=== PATIENT | female | born 1950 | race Caucasian/White ===

== ENCOUNTER 2025-01-27 11:30 | Day surgery (SDC) | payer MEDICARE, MEDICAID ==
[2025-01-27] VITALS (10 sets, daily range): BP systolic 105–135; BP diastolic 48–80; PULSE 67–84; RESP 12–17; TEMP 98.4; O2SAT 91–98
[~2025-01-27] VITALS: Ht 162.6 cm; Wt 53.4 kg
[~2025-01-27 11:30] MED LIST: ARMO150T6 PO; ASPI-1265 PO; ATOR40TA72 PO; BUPR-726 PO; DOCU-392 PO; DULO60CA65 PO; MONT-40 PO; PANT40TA54 PO; PRAM0.129 PO; TRAZ-256 PO
--- NOTE | 2025-01-27 12:00 | ELECTROCARDIOGRAPH REPORT ---
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 MIKE Titus Measurements Intervals [place] Rate: 68 P: 63 MS: 165 QRS: 25 QRSD: 101 T: 94 QT: 408 QTc: 434 Interpretive Statements Sinus rhythm LVH with secondary repolarization abnormality Electronically Signed On 01-27-2025 13:23:[address] MIKE Titus Please click the below link to view image of tracing.
[2025-01-27] MEDS ORDERED: midazolam 1 mg/ML 2ml injection ONE (13:54)
[2025-01-27] MEDS ORDERED: LIDOcaine 1% (10mg/ml) 2ml vial ONE (13:54)
[2025-01-27] MEDS ORDERED: fentaNYL/PF 50MCG/1 ML 2ML syringe ONE (13:54)
[2025-01-27] MEDS ORDERED: verapamil 2.5 mg/ml inj IV ONE (13:54)
[2025-01-27] MEDS ORDERED: nitroGLYCERIN 500mcg/5mL D5W 5 ML IV ONE (13:55)
[2025-01-27] MEDS ORDERED: heparin 1,000unit/ml 10ml vial 10 ML ONE (13:55)
[2025-01-27 14:29] LABS: MEAN PLATELET VOLUME 7.7 FL (7.4-10.4); RED CELL DISTRIBUTION WIDTH 22.3 % (11.5-14.5)
[2025-01-27 14:31] LABS: CREATININE 0.62 MG/DL (0.40-0.90); TOTAL CARBON DIOXIDE 27.4 MMOL/L (24-32); eCRCL 65 ML/MIN; eGFR > 90 ML/MIN
[2025-01-27 14:36] LABS: APTT 26 SECONDS (22-32); INR 1.0 INR
[2025-01-27 15:13] LABS: PLATELET ESTIMATE NORMAL
[2025-01-27] MEDS ORDERED: ondansetron/PF 4mg/2ml inj IV PRN (15:15)
[2025-01-27] MEDS ORDERED: OXAZEpam 15mg capsule PO PRN (15:15)
[2025-01-28 06:20] LABS: ISTAT HGB MIX 6.1 g/dl (12.0-16.0); ISTAT HGB MIX 6.8 g/dl (12.0-16.0); ISTAT Hct MIX 18 %PCV (35-45); ISTAT Hct MIX 20 %PCV (35-45); ISTAT O2 SATURATION MIX VENOUS 54 % (60-80); ISTAT O2 SATURATION MIX VENOUS 57 % (60-80); ISTAT SOURCE BLNK
--- NOTE | 2025-02-21 10:41 | CARDIOLOGY REPORT ---
DATE OF SERVICE: 01/27/2025 DICTATING PHYSICIAN: Rose Alvarenga MD CARDIAC CATHETERIZATION REPORT DATE OF STUDY: 01/27/2025 PROCEDURES: * Right heart catheterization. * Selective coronary angiography. * Conscious sedation monitoring time for 30 minutes. INDICATION: Aortic stenosis. PHYSICIAN: Talon Alvarenga MD DESCRIPTION OF PROCEDURE: After informed consent was obtained, the patient was brought to the lab where she was prepped and draped in the usual sterile fashion. A 6-Burkinan sheath was inserted into the right radial artery and a 6-Burkinan sheath in the right brachial vein. Using a 5-Burkinan [place] catheter, the catheter was advanced under fluoroscopy guidance and floated into the right-sided chambers and into a wedge position where pulmonary capillary wedge pressure and right-sided pressures were obtained. After removing the [place] catheter, a TIG catheter was used and advanced over 0.035 wire. The left and right coronaries were engaged and selective coronary angiography performed. HEMODYNAMICS: For the patient's hemodynamics, please refer to the event log. 1. Left ventriculography was not performed. 2. Pulmonary capillary wedge pressure was 16/15 with a mean of 13 mmHg. 3. Pulmonary arterial pressure was 32/14 with a mean of 23 mmHg. 4. The patient's right ventricular pressure was 34/5 with a mean of 9 mmHg. 5. Right atrial pressure was 12/8 with a mean of 8 mmHg. 6. AO saturation was 95%. 7. PA saturation was 54%. FINDINGS: 1. The left main coronary artery is a normal caliber vessel with my luminal irregularities. 2. The left anterior descending coronary artery is a medium caliber vessel with a 40-50% mid vessel stenosis. 3. The circumflex coronary artery is a medium caliber vessel that tapers to a small caliber vessel distally. 4. The right coronary artery is a normal caliber dominant vessel with a 60-70% mid vessel stenosis. IMPRESSION: * 40-50% mid LAD stenosis. * 60-70% mid RCA stenosis. * Mean pulmonary capillary wedge pressure was 13 and the patient's mean pulmonary arterial pressure was 23 mmHg. * Left ventriculography was not performed. Rose Alvarenga MD TID: [id number] RECEIPT: [id number] KILLIAN/LOVE
== END 2025-01-27 17:50 | disposition home or self-care (01) ==
LOC: SSTAY O 11:30
PROVIDERS: ATTEND Student in an Organized Health Care Education/Training Program
DX: I35.0 Nonrheumatic aortic (valve) stenosis (principal); I25.10 Atherosclerotic heart disease of native coronary artery without angina pectoris; E78.00 Pure hypercholesterolemia, unspecified; I11.0 Hypertensive heart disease with heart failure; I50.9 Heart failure, unspecified; J44.9 Chronic obstructive pulmonary disease, unspecified; Z79.82 Long term (current) use of aspirin; Z88.2 Allergy status to sulfonamides; Z79.899 Other long term (current) drug therapy; F41.9 Anxiety disorder, unspecified; K21.9 Gastro-esophageal reflux disease without esophagitis
CPT/HCPCS: 36415; 80048; 82803; 85014; 85025; 85610; 85730; 93005; 93456; 99152; 99153; A6258; J1644; J2003; J2250; J3010; J3490; J7030; Q0163; Q9967; 85008; A6402; C1751; C1894

== ENCOUNTER 2025-02-27 12:45 | Outpatient (CLI) | payer MEDICARE, MEDICAID ==
[~2025-02-27 12:45] MED LIST changes: +IODIXANOL 320 MG/ML INFUS..BTL 100ML IV ONE
[2025-02-27 13:13] LABS: MEAN PLATELET VOLUME 7.1 FL (7.4-10.4); RED CELL DISTRIBUTION WIDTH 25.0 % (11.5-14.5)
[2025-02-27 13:25] LABS: APTT 33 SECONDS (22-32); INR 1.0 INR
--- NOTE | 2025-02-27 13:26 | RADIOLOGY REPORT ---
DI CHEST,TWO VIEWS, HISTORY: TAVR COMPARISON: None None TECHNICAL DATA: 2 view of the chest was obtained. FINDINGS: Lines and tubes: None Cardiomediastinal silhouette: normal Pulmonary vasculature: normal Lung expansion: normal Lung airspace: normal Lung interstitium: normal Pleura: normal Pneumothorax: no Bones: Unremarkable Other: Calcified breast implants are noted. IMPRESSION: No acute intrathoracic abnormality.
[2025-02-27 13:39] LABS: CREATININE 0.87 MG/DL (0.40-0.90); PRO BRAIN NATRIURETIC PEPTIDE 595 PG/ML (0-450); TOTAL CARBON DIOXIDE 29.4 MMOL/L (24-32); eGFR 63 ML/MIN
[2025-02-27 13:53] LABS: PLATELET ESTIMATE NORMAL
[2025-02-27 13:54] LABS: ELLIPTOCYTES 1+
== END 2025-02-27 23:59 | disposition home or self-care (01) ==
LOC: RAD 12:45
PROVIDERS: ATTEND Internal Medicine Cardiovascular Disease
DX: I35.0 Nonrheumatic aortic (valve) stenosis (principal); R06.02 Shortness of breath; I65.29 Occlusion and stenosis of unspecified carotid artery; Z98.82 Breast implant status
CPT/HCPCS: 36415; 71046; 71275; 74174; 75572; 80053; 83880; 85008; 85025; 85610; 85730; Q9967

== ENCOUNTER 2025-04-03 08:04 | Inpatient (IN) | payer MEDICARE, MEDICAID ==
[~2025-04-03] VITALS: Ht 172.7 cm; Wt 59.5 kg
[2025-04-03] VITALS (25 sets, daily range): BP systolic 90–143; BP diastolic 48–115; PULSE 58–79; RESP 9–16; TEMP 97–97.4; O2SAT 95–100
[~2025-04-03 08:04] MED LIST changes: +BUSP10TA11 PO; -IODIXANOL 320 MG/ML INFUS..BTL 100ML IV ONE; +LINA145C PO; -MONT-40 PO; +MONT-47 PO; +TOBR5DRO7 LEFTEYE; -TRAZ-256 PO; +TRAZ150T78 PO
[2025-04-03] MEDS: nitroPRUSSIDE (NIPRIDE) (200MCG/ML) 100ML Drip IV SCH (08:50)
[2025-04-03] MEDS ORDERED: labetalol 20mg/4ml (5mg/ml) syringe IV PRN ×2 (09:20→11:35)
[2025-04-03] MEDS ORDERED: HYDROmorphone/PF 0.2 MG/ML SYRINGE IV PRN ×2 (09:20)
[2025-04-03] MEDS ORDERED: hydrALAZINE 20mg/ml inj. IV PRN ×2 (09:20→11:35)
[2025-04-03] MEDS ORDERED: ondansetron/PF 4mg/2ml inj IV PRN ×3 (09:20→11:35)
[2025-04-03] MEDS ORDERED: LIDOcaine 1% (10mg/ml) 2ml vial ONE (09:41)
[2025-04-03] MEDS ORDERED: heparin 1,000 UNITS/NS 500ml 1,500 ML ONE (09:42)
[2025-04-03] MEDS: ringers solution, lacted 1,000 ML IV SCH (09:57)
[2025-04-03] MEDS: vancomycin/NS 1 GM ADD-VANTAGE 250 ML IV ONE (09:57)
[2025-04-03] MEDS ORDERED: docusate sod 100mg capsule PO PRN ×2 (10:35→11:35)
[2025-04-03] MEDS ORDERED: morphine 4 MG/ML inj SYRINge IV PRN (10:45)
[2025-04-03] MEDS ORDERED: potassium Cl 40MEQ/270ML bag 250 ML IV PRN (11:35)
[2025-04-03] MEDS ORDERED: potassium Cl 20 mEq SR tablet PO PRN (11:35)
[2025-04-03] MEDS ORDERED: magnesium sulf-water 4G/100mL 100 ML IV PRN (11:35)
[2025-04-03] MEDS ORDERED: ALPRAZolam 0.25mg tablet PO PRN (11:35)
[2025-04-03] MEDS ORDERED: potassium CL 10mEq/100ml bag 100 ML IV PRN (11:35)
[2025-04-03] MEDS ORDERED: potassium Cl 20mEq/100mL bag 100 ML IV PRN (11:35)
[2025-04-03] MEDS ORDERED: magnesium sulf-water 2g/50mL 50 ML IV PRN (11:35)
[2025-04-03] MEDS ORDERED: pantoprazole 40mg Tablet.DR PO PRN (11:35)
[2025-04-03] MEDS ORDERED: potassium Cl 40MEQ/1/2NS 520ml 520 ML IV PRN (11:35)
--- NOTE | 2025-04-03 11:40 | OPERATIVE REPORT ---
Operative Report Providers to CC CC: KALEB ALVARENGA MD ~ Date of Procedure: Apr 03, 2025 Pre-Operative Diagnosis: Severe Aortic Stenosis Post-Operative Diagnosis SAME as PRE-Op Procedure Performed 1. Ultrasound-guided access, bilateral femoral vessels. 2. Bilateral femoral angiography. 3. Ascending aortography 4. Temporary transvenous pacer to the RV apex. 5. Placement of a 23 mm Stone S3 Resilia valve. Surgeon: Nabil Alvarenga MD Environmental Services Associate MD Dr. Maciel Murray MD Anesthesiologist: Axel Soriano Type of Anesthesia: General Findings: Severe Aortic Stenosis Complications None Prosthetics\Implants used: Stone 23mm S3 Resilia Estimated Blood Loss: Minimal Specimen Removed: None Description of Procedure: The patient was brought to the laboratory tester in a fasting state. They underwent general anesthesia. Ultrasound was used to guide access to the bilateral femoral vessels, 7-Burkinan sheath, left femoral artery, 6-Burkinan sheath, right femoral artery and left femoral vein. Bilateral femoral angiograms were obtained. Heparin was given to maintain an ACT over 250 seconds. A single Perclose was placed on the right. We upsized to an 8-Burkinan sheath. Two pigtail catheters placed in the ascending aorta. Ascending aortography done to determine the angle of deployment. Temporary transvenous pacer to the RV apex and confirmed capture. We upsized an 8-Burkinan sheath to a 14-Burkinan Stone eSheath on the right. We crossed the aortic valve using a straight stiff exchange length Terumo wire supported by a 6-Burkinan AL1 catheter. LV AO pressures were recorded. A Cook extra support wire was placed in the left ventricle. A 23mm Stone S3 Resilia valve was brought to position and under rapid right ventricular pacing was deployed. Post-procedure, there was trivial AI and no residual . Guidewires and balloons were removed at this time. The temporary pacer was removed. The 14-Burkinan Stone eSheath was removed and an additional Perclose tied with adequate hemostasis. The arterial sheath on the left was removed and a single Perclose tied. The venous sheath on the left was removed and a single Angioseal used for hemostasis. Protamine was given to reverse the effects of heparin. The patient was stable post-procedure. Good pulses in the legs and no evidence of bleeding, transferred to the PACU in stable condition. HEMODYNAMICS: Pre: LV: 163/15 mmHg LVEDP: 32mmHg Ao: 126/49, MAP 77mmHg Post: LV: 163/14 mmHg LVEDP: 27 mmHg Ao: 160/58, MAP 95mmHg RESULTS: 1. Successful placement of a 23 mm Stone S3 Resilia valve, right transfemoral approach, two perclose devices. ASA 81mg QD 2. Recurrent anemia requiring pRBC transfusions 3. Hypertension: Resume if blood pressure remains stable 4. Acute on chronic diastolic heart failure, LVEDP 32mmHg. Patient will be watched in the recovery area until stable, then transferred to telemetry at that time. NABIL ALVARENGA MD Apr 03, 2025 11:40
--- NOTE | 2025-04-03 11:48 | ELECTROCARDIOGRAPH REPORT ---
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 MIKE Titus Measurements Intervals [place] Rate: 72 P: 65 WI: 163 QRS: 46 QRSD: 97 T: 85 QT: 414 QTc: 454 Interpretive Statements Sinus rhythm Electronically Signed On 04-03-2025 16:53:[address] MIKE Titus Please click the below link to view image of tracing.
[2025-04-03] MEDS: morphine 4 MG/ML inj SYRINge IV PRN (12:48)
[2025-04-03] MEDS: acetaminophen 1,000mg/100ml IV 100 ML IV PRN (12:49)
[2025-04-03] MEDS: phenylephrine inj 50 MG in normal saline 250ml IV solN IV SCH (14:00)
[2025-04-03] MEDS: normal saline 1000ml 1,000 ML IV SCH (14:00)
--- NOTE | 2025-04-03 15:01 | CARDIOLOGY REPORT ---
APPROVED REPORT EXAM: Focused, limited intraprocedural transthoracic 2D, spectral and color flow Doppler echocardiogram during TAVR deployment. Study contains pre- and post-op images. Patient Location: CARDIAC COMPREHENSIVE ADVISOR Blood Pressure: 112/58 mmHg Heart Rate: 74 bpm Rhythm: SINUS Indications SEVERE AORTIC STENOSIS 23 mm Stone Tanna 3 Ultra RESILIA Bioprosthetic TAVR HYPERTENSION HYPERLIPIDEMIA ANEMIA Mail Room: Nava Alvarenga MD / Interventionalist: Kali Alvarenga MD and Rehana Srinivasan MD. / Surgeon: Luciano Zurita MD. / Device rep: Sherley Romero ELS Previous echo: 12/16/24 [facility] (EF 52%, BEVERLEY 0.76 cmsq, pkV 4.63 m/s, grad 86 / 58 mmHg, LVOT 1.92, mLVH, sev LAE, mRAE, m/mod AI, trMR) LEFT VENTRICLE PRE: Normal LV size and function. Mild concentric hypertrophy. LVEF is 55-60%. POST: Unchanged. RIGHT VENTRICLE PRE: RV size and function appear normal. POST: Unchanged. ATRIA PRE: LA appears moderately dilated. POST: Unchanged. AORTIC VALVE PRE: Trileaflet AV appears heavily calcified with significant stenosis demonstrated by reduced excursion and increased transvalvular and ascending aorta turbulance. BEVERLEY: 0.80 cmsq; Pkv: 4.72 m/sec; Gradients: 84 / 51 mmHG. POST DEPLOYMENT (LOOP: 33): 23 mm Stone Tanna 3 Ultra Resilia bioprosthetic TAVR appears well seated with normal function. Trace paravalvular leak present at o'clock in TTE SAX BASE. BEVERLEY is measured at cmsq. Peak / mean gradients of mmHG. Peak velocity is measured at m/sec. MITRAL VALVE PRE: Mild MV annular calcification without stenosis. Trace regurgitation. POST: Unchanged. TRICUSPID VALVE PRE: TV appears structurally normal with trace regurgitation. POST: Unchanged. PULMONIC VALVE PRE: Normal PV without stenosis, physiologic insufficiency. POST: Unchanged. PERICARDIUM PRE: Normal pericardium. No effusion. POST: Unchanged.
[2025-04-03] MEDS: ceFAZolin/D5W- 1GM premix 50 ML IV SCH (16:00)
[2025-04-03] MEDS: sod chloride 0.9% 10ml flush syringe IV SCH (16:00)
--- NOTE | 2025-04-03 16:14 | OPERATIVE REPORT ---
Operative Report Providers to Critical aortic stenosis Date of Procedure: Apr 03, 2025 Pre-Operative Diagnosis: Severe Aortic Stenosis Post-Operative Diagnosis SAME as PRE-Op Procedure Performed TAVR with #23 Stone Tanna valve Surgeon: Surgeon - Yudith SPRAGUE Medical Review Coordinator - Lemuel SPRAGUE Drying Oven Attendant Zachary SPRAGUE Anesthesiologist: Axel Soriano Type of Anesthesia: General Findings: HEMODYNAMICS: Pre: LV: 163/15 mmHg LVEDP: 32mmHg Ao: 126/49, MAP 77mmHg Post: LV: 163/14 mmHg LVEDP: 27 mmHg Ao: 160/58, MAP 95mmHg Complications none Prosthetics\Implants used: TAVR #23 Stone Tanna valve Estimated Blood Loss: minimal Specimen Removed: none Description of Procedure: The patient was brought to the electroplating laborer and underwent general anesthesia. Ultr asound was used to guide access to the bilateral femoral vessels, 7-Ugandan sheath, left femoral artery, 6-Ugandan sheath, right femoral artery and left femoral vein. Bilateral femoral angiograms were obtained. Heparin was given to maintain an ACT over 250 seconds. A single Perclose was placed on the right. We upsized to an 8-Ugandan sheath. Two pigtail catheters placed in the ascending aorta. Ascending aortography done to determine the angle of deployment. Temporary transvenous pacer to the RV apex and confirmed capture. We upsized an 8-Ugandan sheath to a 14-Ugandan Stone eSheath on the right. We crossed the aortic valve using a straight stiff exchange length Terumo wire supported by a 6-Ugandan AL1 catheter. LV AO pressures were recorded. A Snapguide extra support wire was placed in the left ventricle. A 23mm Stone S3 Resilia valve was brought to position and under rapid right ventricular pacing was deployed. Post-procedure, there was trivial AI and no residual . Guidewires and balloons were removed at this time. The temporary pacer was removed. The 14-Ugandan Stone eSheath was removed and an additional Perclose tied with adequate hemostasis. The arterial sheath on the left was removed and a single Perclose tied. The venous sheath on the left was removed and a single Angioseal used for hemostasis. Protamine was given to reverse the effects of heparin. The patient was stable post-procedure. Good pulses in the legs and no evidence of bleeding, transferred to the PACU in stable condition. RESULTS: 1. Successful placement of a 23 mm Stone S3 Resilia valve, right transfemoral approach, two perclose devices. ASA 81mg QD 2. Recurrent anemia requiring pRBC transfusions 3. Hypertension: Resume if blood pressure remains stable 4. Acute on chronic diastolic heart failure, LVEDP 32mmHg. Counts repoted as correct: Yes LOVE CHEATHAM MD Apr 03, 2025 16:14
[2025-04-03] MEDS: HYDROcodone/acetaminophen 5mg/325mg tablet PO PRN (17:38)
[2025-04-03] MEDS: vancomycin/NS 1 GM ADD-VANTAGE 250 ML IV SCH (21:16)
[2025-04-03] MEDS: duloxetine 30mg CAPSULE.DR PO SCH (23:47)
[2025-04-04 02:00] VITALS: BP 119/45; PULSE 70; RESP 22; TEMP 98.5; O2SAT 95
[2025-04-04 06:00] VITALS: BP 122/53; PULSE 75; RESP 19; TEMP 98; O2SAT 94
[2025-04-04 06:59] LABS: MEAN PLATELET VOLUME 6.8 FL (7.4-10.4); RED CELL DISTRIBUTION WIDTH 21.5 % (11.5-14.5)
[2025-04-04 07:28] LABS: CREATININE 0.90 MG/DL (0.40-0.90); PRO BRAIN NATRIURETIC PEPTIDE 374 PG/ML (0-450); TOTAL CARBON DIOXIDE 25.9 MMOL/L (24-32); eCRCL 50 ML/MIN; eGFR 61 ML/MIN
--- NOTE | 2025-04-04 07:41 | RADIOLOGY REPORT ---
CHEST RADIOGRAPH Indication: s/p TAVR Technique: Single frontal view of the chest was obtained COMPARISON: DI CHEST,TWO VIEWS on DOS: 03/26/25, DI CHEST,TWO VIEWS on DOS: 02/27/25 FINDINGS: Lines and Tubes: None Lungs: Mild congestion Pleura: No effusion. No pneumothorax. Cardiomediastinal contours: Status post TAVR. Bones: Unremarkable IMPRESSION: Mild pulmonary vascular congestion
[2025-04-04 08:00] VITALS: RESP 16; O2SAT 95
[2025-04-04] MEDS ORDERED: duloxetine 30mg CAPSULE.DR PO SCH (08:00)
[2025-04-04] MEDS ORDERED: pantoprazole 40mg Tablet.DR PO SCH (08:00)
[2025-04-04] MEDS: BUPROPION HCL 150MG XL 24 HR 150 MG TAB PO SCH (09:01)
--- NOTE | 2025-04-04 09:05 | ELECTROCARDIOGRAPH REPORT ---
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 MIKE Titus Measurements Intervals [place] Rate: 80 P: 65 WI: 148 QRS: 44 QRSD: 99 T: 82 QT: 370 QTc: 427 Interpretive Statements Sinus rhythm Borderline repolarization abnormality Electronically Signed On 04-04-2025 12:12:[address] MIKE Titus Please click the below link to view image of tracing.
[2025-04-04 11:00] VITALS: BP 111/58; PULSE 73; RESP 12; TEMP 97.5; O2SAT 97
== END 2025-04-04 13:18 | disposition home or self-care (01) | DRG 266 ==
LOC: PAS IN 08:04 → PCU 3S 13:47
PROVIDERS: ADMIT Internal Medicine Cardiovascular Disease; ATTEND Internal Medicine Cardiovascular Disease
PROC: B41D1ZZ Fluoroscopy of Aorta and Bilateral Lower Extremity Arteries using Low Osmolar Contrast (ICD-10-PCS; 2025-04-03)
PROC: 02RF38Z Replacement of Aortic Valve with Zooplastic Tissue, Percutaneous Approach (ICD-10-PCS; principal; 2025-04-03 10:19)
DX: I35.0 Nonrheumatic aortic (valve) stenosis (principal); Z00.6 Encounter for examination for normal comparison and control in clinical research program; I50.33 Acute on chronic diastolic (congestive) heart failure; I11.0 Hypertensive heart disease with heart failure; D64.9 Anemia, unspecified
CPT/HCPCS: 33361; 36415; 71045; 71046; 76937; 80053; 81003; 82948; 83735; 83880; 85008; 85025; 85347; 85610; 85730; 86870; 86885; 86900; 86901; 86902; 86905; 86920; 86922; 87081; 93005; 93308; A4615; A4618; A6258; A6449; C1756; C1760; C1769; C1894; G0378; J0131; J0690; J1644; J2003; J2270; J2371; J2720; J3373; J3490; J7030; J7040; J7050; J7120; Q9967

== ENCOUNTER 2025-05-07 07:39 | Outpatient (CLI) | payer MEDICARE, MEDICAID ==
[~2025-05-07 07:39] MED LIST changes: +PHENYLephrine 10mg/ml 5ml injection IV ONE; +fentaNYL/PF 50MCG/1 ML 2ML syringe ONE; +heparin 1,000unit/ml 10ml vial 10 ML ONE; +midazolam 1 mg/ML 2ml injection ONE; +propofol inj 20 ML IV ONE; +protamine sulf. 10mg/ml inj. IV ONE
--- NOTE | 2025-05-07 21:35 | CONSULTATION REPORT ---
History of Present Illness Providers to CC CC: KALEB ALVARENGA MD ~ Refering MD: Dr. Alvarenga History of Present Illness We had the pleasure of speaking with the patient and their caregiver for cardiovascular follow-up. They are now one month post transfemoral transcatheter aortic valve replacement. On 04/03/2025 they had a 23mm Stone S3 Resilia valve placed via right femoral access with two perclose devices placed. In the interim, reports feeling better overall. States more energy and less shortness of breath. Patient denies any chest pains, syncope, bleeding, lower-extremity edema. Allergies: Coded Allergies: latex (Verified Allergy, Unknown, ITCHY, 04/03/25) Sulfa (Sulfonamide Antibiotics) (Verified Adverse Reaction, Unknown, NAUSEA/VOMITING, 04/03/25) Home Medications Home Medications Active Reported Tobramycin-Dexameth Ophth Susp (Tobramycin/Dexamethasone) 0.3 %-0.1 % Drops.susp 1 Drop LEFTEYE TID Trazodone Hcl 150 Mg Tablet 150 Mg PO DAILY Linzess (Linaclotide) 145 Mcg Capsule 0.5 Cap PO DAILY 30 Days Singulair (Montelukast Sodium) 10 Mg Tablet 1 Tab PO DAILY 30 Days Buspar* (Buspirone HCl) 10 Mg Tablet 1 Tab PO Q12H 30 Days Armodafinil 150 Mg Tablet 1 Tab PO DAILY Aspirin 81 Mg Tab.chew 1 Tab PO DAILY Pantoprazole Sodium 40 Mg Tablet.dr 1 Tab PO DAILY Atorvastatin Calcium 40 Mg Tablet 1 Tab PO HS Pramipexole Dihydrochloride (Pramipexole Di-Hcl) 0.125 Mg Tablet 1 Tab PO DAILY Duloxetine HCl 60 Mg Capsule.dr 2 Cap PO DAILY Bupropion Xl (Bupropion HCl) 150 Mg Tab.er.24h 3 Tab PO DAILY Docusate Sodium 100 Mg Capsule 1 Cap PO BID PRN Review of Systems ROS ROS Comments: 14 point review of systems negative except what is reported above. Results Results/Orders Results/Orders EKG: Sinus bradycardia, QRS 97ms ECHOCARDIOGRAM: LVEF 60%, Mean Gradient 11 mmHg, No pericardial effusion or PVL. Assessment/Plan Problems/Diagnosis: (1) Aortic stenosis Assessment & Plan: Pleasant 74yo woman doing well after transfemoral transcatheter aortic valve replacement with an Stone 23mm S3 Resilia valve on 04/03/2025. PLAN: 1. Endocarditis Prophylaxis for life. Patient educated. 2. Pending Initiation of Cardiac Rehab Dr. Alvarenga, We thank you for allowing us the opportunity to help with the patient. They will see you back in the office shortly. NABIL ALVARENGA MD May 07, 2025 21:35
== END 2025-05-07 23:59 | disposition home or self-care (01) ==
LOC: TAVR 07:39
PROVIDERS: ATTEND Internal Medicine Cardiovascular Disease
DX: Z48.812 Encounter for surgical aftercare following surgery on the circulatory system (principal); Z95.2 Presence of prosthetic heart valve
CPT/HCPCS: J1644; J2250; J2371; J2704; J2720; J3010